=== PATIENT | female | born 1995 | race African-American/Black ===

== ENCOUNTER 2017-07-10 15:37 | Emergency (ER) | payer SELFPAY ==
[~2017-07-10] VITALS: Ht 167.6 cm; Wt 52.7 kg
--- OUTSIDE RECORDS SUMMARY | 2017-07-10 15:39 | XMS REPORT ---
Author Author [facility] Address Unknown Phone Unavailable Care Team Providers Care Joint Sealer Name Role Phone Unavailable Unavailable Problems This patient has no known problems. Allergies, Adverse Reactions, Alerts This patient has no known allergies or adverse reactions. Medications This patient has no known medications. Encounters Start Date/Time End Date/Time Encounter Type Admission Type Attending Clinicians Care Facility Care Department Encounter ID 2016-07-12 00:00:00 2016-07-12 00:00:00 Outpatient [facility] [id number]
[2017-07-10] MEDS ORDERED: ONDANSETRON HCL 4 MG ORAL DISINTEGRATING TAB PO ONE (16:15)
== END 2017-07-10 17:47 | disposition home or self-care (01) ==
LOC: FSED 15:37
CPT/HCPCS: 81003; 81025; 99282

== ENCOUNTER 2017-10-04 00:22 | Emergency (ER) | payer SELFPAY ==
[~2017-10-04] VITALS: Ht 167.6 cm; Wt 53.5 kg
== END 2017-10-04 00:42 | disposition home or self-care (01) ==
LOC: FSED 00:22
DX: K02.9 Dental caries, unspecified (principal)
CPT/HCPCS: 99282

== ENCOUNTER 2021-01-21 10:39 | Emergency (ER) | payer SELFPAY ==
[~2021-01-21] VITALS: Ht 167.6 cm; Wt 62.8 kg
[2021-01-21] MEDS ORDERED: IBUPROFEN 600 MG TAB ONE (11:02)
[2021-01-21] MEDS ORDERED: BROMFED DM COU118 ML PO (11:21)
[2021-01-21] MEDS ORDERED: IBUPROFEN 600 MG TAB PO STA (11:37)
== END 2021-01-21 11:36 | disposition home or self-care (01) ==
LOC: FSED 10:45
DX: R50.9 Fever, unspecified (principal); J02.9 Acute pharyngitis, unspecified; B34.9 Viral infection, unspecified; R05.9 Cough, unspecified
CPT/HCPCS: 81025; 83518; 87400; 99283